=== PATIENT | male | born 1940 ===

== ENCOUNTER 2016-08-08 09:37 | Emergency (ER) | payer SELFPAY ==
[2016-08-08 09:43] VITALS: BP 151/87; PULSE 104; TEMP 98.8; O2SAT 100
[2016-08-08] MEDS ORDERED: Oxycodone/Acetaminophen 5/325 mg Tab ONE (10:11)
[2016-08-08] MEDS ORDERED: Oxycodone/Acetaminophen 5/325 mg Tab PO STA (10:12)
--- NOTE | 2016-08-08 10:20 | ED PDOC ---
Lower Extremity Pain/Injury Time Seen by Provider: 08/08/16 10:00 Chief Complaint (Nursing): Lower Extremity Problem/Injury Chief Complaint (Provider): Lower Extremity Problem/Injury History Per: Patient History/Exam Limitations: no limitations Onset/Duration Of Symptoms: Days Current Symptoms Are (Timing): Still Present Severity: Moderate Additional Complaint(s): Patient is a 75 year old male who presents to ED for evaluation of left knee, ankle and foot pain that began yesterday and worsened last night. Patient states he noticed swelling to those joints with pain upon walking. Patient notes similar pain in the past, given a medication with resolutions. Patient is visiting here from [facility] with no PMH Past Medical History Reviewed: Historical Data, Nursing Documentation, Vital Signs Vital Signs: Last Vital Signs Temp 98.8 F 08/08/16 09:42 Pulse 104 H 08/08/16 09:42 Resp BP 151/87 H 08/08/16 09:42 Pulse Ox 100 08/08/16 09:42 - Medical History PMH: No Chronic Diseases - Surgical History Surgical History: No Surg Hx - Family History Family History: States: No Known Family Hx - Home Medications Home Medications: Ambulatory Orders Medication Instructions Recorded Naproxen 500 mg PO BID #20 tab 08/08/16 oxyCODONE/Acetaminophen [Percocet 1 ea PO Q6 PRN #12 tab 08/08/16 5/325 mg Tab] - Allergies Allergies/Adverse Reactions: Allergies Allergy/AdvReac Type Severity Reaction Status Date / Time No Known Allergies Allergy Verified 08/08/16 09:53 Review of Systems ROS Statement: Except As Marked, All Systems Reviewed And Found Negative Constitutional: Negative for: Fever, Chills Cardiovascular: Negative for: Chest Pain, Palpitations Respiratory: Negative for: Shortness of Breath Musculoskeletal: Positive for: Leg Pain, Foot Pain. Negative for: Neck Pain, Back Pain Skin: Negative for: Bruising Neurological: Negative for: Weakness, Numbness Physical Exam - Reviewed Nursing Documentation Reviewed: Yes Vital Signs Reviewed: Yes - Physical Exam Appears: Positive for: Non-toxic, No Acute Distress Skin: Positive for: Normal Color, Warm Eye Exam: Positive for: Normal appearance Neck: Positive for: Normal, Painless ROM Extremity: Positive for: Normal ROM, Capillary Refill (less than 2 seconds ), Other (Left Knee: Mild swelling with full but painful ROM no erythema, no deformity. Left ankle: (+) mild erythema with swelling. Left foot: (+) mild swelling and erythema to dorsum of foot. Left foot(+) Lateral aspect with erythema including 3,4,5 metatarsals ). Negative for: Calf Tenderness Neurologic/Psych: Positive for: Alert, Oriented. Negative for: Motor/Sensory Deficits - Laboratory Results Result Diagrams: 08/08/16 10:29 08/08/16 10:29 - ECG O2 Sat by Pulse Oximetry: 100 (RA) Pulse Ox Interpretation: Normal - CT Scan/US Duplex left leg Other Rad Studies (CT/US): Read By Radiologist, Radiology Report Reviewed Other Rad Interpretation: no acute findings Medical Decision Making Medical Decision Making: Time: 1005 Initial impression: Gouty arthritis or other form of arthritis, less likely cellulitis Initial plan: -- BMP -- Uric acid -- CBC -- Ankle, Foot and Knee -- Percocet Xrays knee, ankle, foot without acute findings. Scribe Attestation: Documented by Karime Herrera acting as a scribe for Vero Walsh MD MD Scribe Attestation: All medical record entries made by the Scribe were at my direction and personally dictated by me. I have reviewed the chart and agree that the record accurately reflects my personal performance of the history, physical exam, medical decision making, and the department course for this patient. I have also personally directed, reviewed, and agree with the discharge instructions and disposition. Disposition - Clinical Impression Clinical Impression: Arthritis, Knee pain, right, Ankle pain, right - Patient ED Disposition Is Patient to be Admitted: No Doctor Will See Patient In The: Office Counseled Patient/Family Regarding: Studies Performed, Diagnosis, Need For Followup - Disposition Referrals: [facility] [Outside] Disposition: Routine/Home Disposition Time: 14:19 Condition: GOOD Additional Instructions: Return for worsening. Follow up with your PCP in 2-3 days. Regreso por empeoramiento. Sigua con [facility] en 2-3 white. Prescriptions: Naproxen 500 mg PO BID #20 tab oxyCODONE/Acetaminophen [Percocet 5/325 mg Tab] 1 ea PO Q6 PRN #12 tab PRN Reason: Pain, Moderate (4-7) Instructions: Arthritis (ED) Print Language: INDIAN
[2016-08-08 10:37] LABS: BASO # 0.1 K/uL (0.0-0.2); BASO % 0.8 % (0.0-2.0); EOS # 0.1 K/uL (0.0-0.7); EOS % 0.8 % (0.0-4.0); LYMPH # 1.9 K/uL (1.0-4.3); LYMPH % 13.4 % (20.0-40.0); MEAN CELL VOLUME 85.5 fl (80.0-94.0); MEAN CORPUSCULAR HEMOGLOBIN 27.7 pg (27.0-31.0); MEAN CORPUSCULAR HGB CONC 32.4 g/dL (33.0-37.0); MEAN PLATELET VOLUME 7.6 fl (7.2-11.7); MONO # 1.1 K/uL (0.0-0.8); MONO % 7.7 % (0.0-10.0); NEUT % 77.3 % (50.0-75.0); NRBC % 0.1 % (0.0-0.0); RED CELL DISTRIBUTION WIDTH 14.4 % (11.5-14.5); WHITE BLOOD COUNT 14.3 K/uL (4.8-10.8)
[2016-08-08 10:43] LABS: CALCIUM 9.7 mg/dL (8.4-10.2); POTASSIUM 4.1 MMOL/L (3.6-5.0)
--- NOTE | 2016-08-08 13:27 | RAD ---
PROCEDURE: Left Knee Radiographs. HISTORY: Pain. COMPARISON: None. FINDINGS: BONES: There is periarticular bone demineralization. There is no acute fracture or bone destruction. JOINTS: There is mild degenerative osteoarthrosis in the medial compartment with reduced joint space. JOINT EFFUSION: There is a small suprapatellar joint effusion. OTHER FINDINGS: None. 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 Small suprapatellar joint effusion.
--- NOTE | 2016-08-08 13:30 | RAD ---
PROCEDURE: Left Ankle Radiographs. HISTORY: Left ankle pain swelling COMPARISON: None FINDINGS: BONES: No acute fracture or bone destruction. There is a prominent dorsal calcaneal enthesophyte. JOINTS: Normal. No osteoarthritis. Ankle mortise maintained. Talar dome intact SOFT TISSUES: Normal. OTHER FINDINGS: Atherosclerotic vascular calcifications are present. IMPRESSION: No acute fracture, dislocation or bone destruction.
--- NOTE | 2016-08-08 13:31 | RAD ---
PROCEDURE: Left Foot Radiographs. HISTORY: left foot pain COMPARISON: None. FINDINGS: BONES: Bone alignment and mineralization are normal. There is a prominent dorsal calcaneal enthesophyte. JOINTS: The joint are preserved. SOFT TISSUES: Normal. OTHER FINDINGS: Atherosclerotic vascular calcifications are present. IMPRESSION: No acute fracture, dislocation or bone destruction.
== END 2016-08-08 14:55 | disposition home or self-care (01) ==
LOC: H.ER 09:37
DX: M25.561 Pain in right knee (principal); M25.571 Pain in right ankle and joints of right foot; M25.572 Pain in left ankle and joints of left foot; M19.90 Unspecified osteoarthritis, unspecified site
CPT/HCPCS: 73562; 73600; 73620; 80048; 84550; 85025; 93971; 96372; 99284; J1885